=== PATIENT | female | born 1930 | race Caucasian/White ===

== ENCOUNTER 2016-07-30 15:32 | Inpatient (IN) | payer MEDICARE, OTHER ==
--- NOTE | ~2016-07-30 | DS ---
Discharge Summary [facility] [address] [place]. [address] NAME: NELL HUMMEL : 29 STATUS : DIS IN PAT#: [id number] AGE: 86 ADM/REG DATE : 07/30/16 MR#: [id number] REPORT SERV DATE: 08/03/16 DICTATED BY: JOSH HALL DATE: 08/02/16 REPORT STATUS : Draft TRANSCRIBED BY: MODL DATE: 08/02/16 ADMISSION DATE: 07/30/2016 DISCHARGE DATE: 08/02/2016 ADDENDUM: The patient was unable to go home yesterday because no family member was available to pick her up. Given that today is her birthday, the patient on quinteros is insisting on going home today. For her YUSUF, etiology likely secondary to nephrotoxins, also in the setting of diuresis, plan is to hold her Lasix and her potassium supplementation until she is re-evaluated by her primary care physician in five to seven days. The patient currently on potassium supplements. The patient has been instructed to hold her potassium supplementation until re-evaluated by her primary care physician. Given her hemodynamic stability, resolution of presenting symptoms, and given that today is her birthday and she is eagerly and insisting on going home, the patient will be discharged with the above- mentioned instruction. The patient has been counseled, informed of YUSUF and instructed to follow up with her primary care physician in five to seven days. The patient voices understanding and is agreeable with this plan. All other information on discharge summary remains the same. IBETH/RAMON Josh Hall MD / [id number] CC: MD Hilda Harding M.D.
--- NOTE | ~2016-07-30 | DS ---
Discharge Summary [facility] [address] [place]. [address] NAME: NELL ROSSI : 29 STATUS : ADM IN [facility]#: [id number] AGE: 85 ADM/REG DATE : 07/30/16 MR#: [id number] REPORT SERV DATE: 08/01/16 DICTATED BY: JOSH HALL DATE: 08/01/16 REPORT STATUS : Draft TRANSCRIBED BY: MODL DATE: 08/01/16 ADMISSION DATE: 07/30/2016 DISCHARGE DATE: HISTORY OF PRESENT ILLNESS: Ms. Rossi is an 85-year-old female with a history of hypertension, diabetes type 2, CKD stage 3, who presented to the hospital as a direct transfer from [facility] secondary to suspected pneumonia. For further details, please refer to H and P dictated by Dr. Ohara on 07/30/2016. HOSPITAL COURSE: Upon presentation to the emergency room, the patient was noted to be in significant volume overload. A preliminary x-ray obtained noted some infiltrates concerning for pneumonia. The patient was subsequently placed on IV diuretics and also started on IV antibiotics. During her hospital course, the patient responded well to IV diuresis and achieved euvolemia. Her creatinine was noted to trend up, hence IV Lasix was subsequently held. For her pneumonia, upon reevaluation, the patient did not have any clinical symptoms consistent with pneumonia. Therefore, IV antibiotics were discontinued. The patient has remained hemodynamically stable. She has achieved euvolemia and has returned to her baseline. Given her creatinine was noted to bump up today to 1.40, initial plan was to keep the patient for one more day to observe a downward trend in creatinine prior to discharge. However, the patient's birthday is tomorrow and she eagerly wants to go to celebrate her 86th birthday at home. The patient reports that she does have a primary care physician and promises to follow up with her primary care physician for reevaluation in seven to ten days. Therefore, given resolution of presenting symptoms, the patient will be discharged home to follow with her primary care physician. Plan has been discussed with the patient, who voices understanding and is agreeable with this plan. DISCHARGE EXAM: VITAL SIGNS: Blood pressure 139/84 with a pulse of 82, respiration of 14, O2 saturation of 95% on room air. GENERAL: The patient appears stated age, in no acute distress, very pleasant. HEENT: Normocephalic, atraumatic. Extraocular motors intact. Moist oral mucosa. Anicteric sclerae. NECK: Trachea midline and symmetric. No JVD noted. No thyromegaly present. CHEST: Nontender to palpation. No scars are present. CARDIOVASCULAR: Irregular rate and rhythm. S1, S2. I did not appreciate any murmurs. LUNGS: Clear to auscultation bilaterally. No added breath sounds. ABDOMEN: Positive bowel sounds. Nontender. Nondistended. EXTREMITIES: No clubbing, no cyanosis, no edema. NEURO: Alert and oriented x3. DISCHARGE DIAGNOSES: 1. Heart failure with preserved EF. 2. Hypertension. 3. Diabetes type 2. 4. Chronic kidney disease stage 3. 5. Acute kidney injury. Discharge Summary [address] [address] NAME: NELL ROSSI : 29 STATUS : ADM IN [facility]#: [id number] AGE: 85 ADM/REG DATE : 07/30/16 MR#: [id number] REPORT SERV DATE: 08/01/16 DICTATED BY: JOSH HALL DATE: 08/01/16 REPORT STATUS : Draft TRANSCRIBED BY: RAMON DATE: 08/01/16 DISCHARGE MEDICATIONS: 1. Apixaban 5 mg p.o. twice a day. 2. Aspirin 81 mg p.o. daily. 3. Carvedilol 12.5 mg p.o. daily. 4. Furosemide 40 mg p.o. b.i.d. 5. Losartan 50 mg p.o. daily. 6. Tamoxifen 20 mg p.o. daily. PROCEDURES: The patient had a TTE performed with an ejection fraction of 55%. DISPOSITION: The patient will be discharged home to follow up with her primary care physician. DIET: Diabetic diet. ACTIVITY: As tolerated. Greater than 30 minutes was spent coordinating care, planning discharge, dictation of note, medication reconciliation, discussion of care with nurses, and writing prescriptions. IBETH/RAMON Jsoh Hall MD / [id number] CC: MD Hilda Harding M.D.
--- NOTE | ~2016-07-30 | HP ---
History And Physical [place] [place]. [address] NAME: NELL HUMMEL : 29 STATUS : ADM IN [facility]#: [id number] AGE: 85 ADM/REG DATE : 07/30/16 MR#: [id number] REPORT SERV DATE: 07/30/16 DICTATED BY: JACK FINN DATE: 07/30/16 REPORT STATUS : Draft TRANSCRIBED BY: MODL DATE: 07/30/16 DATE OF ADMISSION: 07/30/2016 REASON FOR ADMISSION: Transfer from [facility] with suspected pneumonia. HISTORY: This is an 85-year-old white female, who was followed by Dr. Trevor Rajan in the past. There was some question with regard to weakness of her heart though she has not had an echocardiogram in the last two years. She has had pleural effusion in the past and had this tapped. She did have a pneumothorax and was hospitalized at [facility] because the pneumothorax from the thoracentesis in the past. She has had no fever, chills, or night sweats. She has had a cough that was productive of blood at 1 time. She is on Eliquis because of bivalvular replacement in the past by Dr. Jaret Gale. She was seen by Dr. Lao in the emergency room at [facility] and requested transfer here for provisional diagnosis of pneumonia; however, she had no fever there, was coughing nonproductively and had a normal white blood cell count. HOME MEDICATIONS: Include the following: Ondansetron 4 q.4 hours p.r.n. nausea and vomiting; pantoprazole 40 mg p.o. b.i.d.; glimepiride 4 mg p.o. daily; Sitagliptin 100 mg p.o. daily; carvedilol 12.5 mg p.o. b.i.d.; tamoxifen 20 mg p.o. daily for 30 days; lisinopril 20 mg p.o. daily; furosemide 20 mg p.o. daily; potassium chloride 30 mg p.o. daily; and Eliquis 5 mg p.o. b.i.d. She has had a complaint of generalized weakness but she gets around with a walker. She has been at the assisted living facility for 17 years. She has had no falling recently. She does have some leg edema and wears compressive stockings to help with that. PAST MEDICAL HISTORY: She has back pain and neck pain and some arthritis. ALLERGIES: INCLUDE THE FOLLOWING: BARIUM SULFATE CAUSES HYPOTENSION AND BRONCHOSPASM; AMITIZA CAUSED HIVES; PIOGLITAZONE CAUSED GENERALIZED SWELLING; SULFA DRUGS CAUSED HIVES; AND SIMVASTATIN CAUSED LEG CRAMPS. SHE ALSO TAKES NORCO 5/325 Q.4 HOURS P.R.N. SEVERE PAIN. PAST MEDICAL HISTORY: She has had problems with breast cancer. She had a mastectomy in 2005. Since that time, she has been on tamoxifen. This is apparently in a postmenopausal state. 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 She has a permanent pacemaker placed by Dr. Rajan. Left mastectomy. She has a history of skin cancer removed and grafted by Dr. Wood on her forehead, this was done in [place]. She does have diabetes type 2. SOCIAL HISTORY: She grew up in [place]. She is and moved into [place] with her . She has attended [facility] [place]. She has been History And Physical [address] [address] NAME: NELL HUMMEL : 29 STATUS : ADM IN [facility]#: [id number] AGE: 85 ADM/REG DATE : 07/30/16 MR#: [id number] REPORT SERV DATE: 07/30/16 DICTATED BY: JACK FINN DATE: 07/30/16 REPORT STATUS : Draft TRANSCRIBED BY: RAMON DATE: 07/30/16 since 1995. 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 She never smoked but her did smoke. She had significant secondhand smoke. She took no alcohol. She grew up on the [place] farm in [place]. FAMILY HISTORY: She had 3 brothers, the oldest of exposure to Agent [place] from his [place] experience. She knows no diseases run in the family other than hypertension. She has a sister who is still living. Her mother and father were from hypertensive complications in the past. REVIEW OF SYSTEMS: She has some hardness of hearing. Swelling in the lower extremities which is chronic. She has dyspnea with exertion. She does not wear oxygen. She has had no fever, chills, or night sweats. No melena or hematemesis even on the Eliquis. No fits, seizures, convulsions, or unilateral weakness. No chest pain. She had no pleuritic chest pain. She did have shortness of breath and dyspnea with exertion that provoked her visit to [facility] earlier in the day. She has had a cough nonproductive except the hemoptysis. She does have . She does relate to a history of pneumothorax after a pleural effusion was removed by thoracentesis in the past. She does have atrial fibrillation as well at baseline. PHYSICAL EXAMINATION: GENERAL: Elderly white female, no acute distress. VITAL SIGNS: Her blood pressure was 163/76 with a heart rate of 75, respiratory rate 20, temperature was 98.3, pulse oximetry was 92%, repeat 98%. LAB DATA AND IMAGING DATA: Her EKG shows a ventricular paced rhythm with 1 [place] beat noted on the tracing from [facility]. Her hemoglobin is 12.1, hematocrit 38.4, white count 7.9, and platelets 269,000. Sodium 140, potassium 3.5, chloride 103, and CO2 is 32.2. Creatinine 0.9, BUN 18, and glucose was 147. Her lactate was 1.4. Troponin less than 0.02. Influenza negative x2. Urinalysis showed 10 to 15 white cells per high-powered field, 3+ bacteria, specific gravity 1.015. Her calcium was 8.9. Her BNP was elevated at 2182. Albumin was 3.1. INR was 1.2. White count 7.9, hemoglobin 12.7, hematocrit 38.4, and platelets 269. Chest x-ray showed worsening pulmonary venous hypertension and right upper lobe airspace opacity, possibly representing atelectasis with large pleural effusion. CT scan confirmed large pleural effusion on the right side. ASSESSMENT: 1. Right pleural effusion. As with the elevated BNP, normal white blood cell count, nonproductive purulent cough, I suspect congestive heart failure with recurrence of the right pleural effusion as the main problem. I will increase her Lasix and add metolazone and see if this improves rather than starting antibiotics at this point. The patient got Levaquin at the [facility]. History And Physical [place] [address] [place]. [address] NAME: NELL HUMMEL : 29 STATUS : ADM IN PAT#: [id number] AGE: 85 ADM/REG DATE : 07/30/16 MR#: [id number] REPORT SERV DATE: 07/30/16 DICTATED BY: JACK FINN DATE: 07/30/16 REPORT STATUS : Draft TRANSCRIBED BY: MODL DATE: 07/30/16 2. Possible right upper lobe pneumonia. I believe this is more atelectasis due to compression of loss of volume from the large pleural effusion. 3. History of pneumothorax from previous thoracentesis attempt, therefore I am going to try diuresis to mobilize the pleural effusion first. 4. Aortic valve replacement and mitral valve replacement at [facility] by Dr. Jaret Gale. 5. Permanent pacemaker. 6. History of left mastectomy. We may need to do the thoracentesis to see if this is an exudative neoplastic pleural effusion if it does not mobilize over the next two days. 7. Dyspnea with exertion. 8. Hemoptysis 1 time. She is on Eliquis and had a cough earlier. 9. Coagulopathy. 10.Degenerative joint disease of the knees and hips. 11.History of skin cancer removed by Dr. Wood in the forehead. 12.History of breast cancer on tamoxifen for the last 10 years. 13.Diabetes type 2 on oral medications. 14.Hypertension. 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 Donavan Michele from [facility]. PLAN: Treat as congestive heart failure with pleural effusion with acute exacerbation. Check echocardiogram. Tap if it does not mobilize fairly quickly. We will get a chest x- ray in the next two or three days. DB/MODL Jack Finn M.D. / [id number] CC: Lucian Michel M.D.
[2016-07-30] MEDS ORDERED: OTC PAIN PATCH TOP (17:10)
[2016-07-30] MEDS ORDERED: VITAMIN E PO (17:11)
[2016-07-30] MEDS ORDERED: ASAB PO (17:11)
[2016-07-30] MEDS ORDERED: VITAMIN D PO (17:11)
[2016-07-30] MEDS ORDERED: VITAMIN C PO (17:11)
[2016-07-30] MEDS ORDERED: [UNRECOGNIZED DRUG - OTHER] PO (17:12)
[2016-07-30] MEDS ORDERED: ELIQUIS 5 MG TAB5 MG PO (17:12)
[2016-07-30] MEDS ORDERED: TAMOXIFEN20 M1 PO (17:19)
[2016-07-30] MEDS ORDERED: NORCO1 TAB PO (17:19)
[2016-07-30] MEDS ORDERED: L80 PO (17:19)
[2016-07-30] MEDS ORDERED: COZ50 PO (17:19)
[2016-07-30] MEDS ORDERED: COREG12 PO (17:20)
[2016-07-30] MEDS ORDERED: JANUVIA100 MG PO (17:20)
[2016-07-30 18:45] LABS: FREE T4 1.65 NG/DL (0.76-1.46); ULTRASENSITIVE TSH 0.299 MCIU/ML (0.358-3.740)
[2016-07-30 19:27] LABS: PROCALCITONIN 0.15 ng/mL (<0.5)
[2016-07-31 02:25] LABS: ASCORBIC ACID (UR NOT ORDER) NEG (NEG); BILIRUBIN, URINE NEGATIVE (NEG); KETONE, URINE NEGATIVE (NEG); LEUKOCYTE ESTERASE(NOT OR NEG (NEG); WBC (NOT ORDERED) (RFLEX) < 1 (0-5)
[2016-07-31 06:09] LABS: BASOPHILS 0.4 %; BASOPHILS ABSOLUTE 0.03 10/3/uL (0.0-0.16); EOSINOPHILS ABSOLUTE 0.08 10/3/uL (0.0-0.53); HEMATOCRIT 40.5 % (36.0-48.0); HEMOGLOBIN 12.8 g/dL (12.0-16.0); IMMATURE GRANULOCYTES 0.2 %; IMMATURE GRANULOCYTES ABSOLUTE 0.02 10/3/uL (0.0-0.11); LYMPHOCYTES 18.6 %; LYMPHOCYTES ABSOLUTE 1.49 10/3/uL (0.67-4.30); MEAN CORPUS HGB CONC 31.6 g/dL (32.0-36.0); MEAN CORPUSCULAR HEMOGLOB 27.4 pg (26.0-34.0); MEAN CORPUSCULAR VOLUME 86.7 fL (80-100); MEAN PLATELET VOLUME 9.6 fL (9.2-13.0); MONOCYTES 7.6 %; MONOCYTES ABSOLUTE 0.61 10/3/uL (0.21-1.20); NEUTROPHILS 72.2 %; PLATELET COUNT 299 10/3/uL (150-400); RBC DISTRIBUTION WIDTH 15.2 % (12.0-16.0); RED CELL COUNT 4.67 10/6/uL (4.0-5.6)
[2016-07-31 06:19] LABS: MANUAL DIFF NO %
[2016-07-31 07:43] LABS: BUN (BLOOD UREA NITROGEN) 15 MG/DL (6-23); CALCIUM, SERUM 8.8 MG/DL (8.5-10.4); CHLORIDE, SERUM 98 MMOL/L (96-112); CO2 (CARBON DIOXIDE) 32 MMOL/L (24-34); CREATININE 0.91 MG/DL (0.55-1.02); GFR AFRICAN AMERICAN 66 ML/MIN (>=60); GFR NON AFRICAN AMERICAN 57 ML/MIN (>=60); GLUCOSE, SERUM 115 MG/DL (60-99); POTASSIUM, SERUM 3.9 MMOL/L (3.5-5.3); SODIUM, SERUM 142 MMOL/L (135-148)
[2016-08-01 08:18] LABS: BASOPHILS 0.1 %; BASOPHILS ABSOLUTE 0.01 10/3/uL (0.0-0.16); EOSINOPHILS 0.9 %; EOSINOPHILS ABSOLUTE 0.08 10/3/uL (0.0-0.53); HEMATOCRIT 40.7 % (36.0-48.0); HEMOGLOBIN 13.3 g/dL (12.0-16.0); IMMATURE GRANULOCYTES 0.7 %; IMMATURE GRANULOCYTES ABSOLUTE 0.06 10/3/uL (0.0-0.11); LYMPHOCYTES 19.6 %; MEAN CORPUS HGB CONC 32.7 g/dL (32.0-36.0); MEAN CORPUSCULAR HEMOGLOB 28.1 pg (26.0-34.0); MEAN PLATELET VOLUME 9.8 fL (9.2-13.0); MONOCYTES 9.2 %; MONOCYTES ABSOLUTE 0.84 10/3/uL (0.21-1.20); NEUTROPHILS 69.5 %; NEUTROPHILS ABSOLUTE 6.39 10/3/uL (2.02-8.40); PLATELET COUNT 327 10/3/uL (150-400); RBC DISTRIBUTION WIDTH 15.3 % (12.0-16.0); RED CELL COUNT 4.73 10/6/uL (4.0-5.6); WHITE BLOOD CELLS 9.2 10/3/uL (4.5-10.5)
[2016-08-01 08:19] LABS: MANUAL DIFF NO %
[2016-08-01 08:33] LABS: A/G RATIO 0.9 (0.7-1.9); ALBUMIN 3.2 G/DL (3.5-5.0); ALKALINE PHOSPHATASE 90 U/L (45-117); CALCIUM, SERUM 8.8 MG/DL (8.5-10.4); CHLORIDE, SERUM 99 MMOL/L (96-112); CO2 (CARBON DIOXIDE) 31 MMOL/L (24-34); GFR AFRICAN AMERICAN 39 ML/MIN (>=60); GFR NON AFRICAN AMERICAN 34 ML/MIN (>=60); GLOBULIN 3.4 G/DL (2.5-4.1); GLUCOSE, SERUM 138 MG/DL (60-99); POTASSIUM, SERUM 4.6 MMOL/L (3.5-5.3); SGOT(AST) 24 U/L (5-40); SGPT(ALT) 24 U/L (5-65); SODIUM, SERUM 141 MMOL/L (135-148); TOTAL BILIRUBIN 0.7 MG/DL (0-1.2); TOTAL PROTEIN 6.6 G/DL (6.0-8.5)
[2016-08-01 08:34] LABS: BUN (BLOOD UREA NITROGEN) 24 MG/DL (6-23)
[2016-08-02 04:48] LABS: BASOPHILS 0.2 %; BASOPHILS ABSOLUTE 0.02 10/3/uL (0.0-0.16); EOSINOPHILS 1.8 %; EOSINOPHILS ABSOLUTE 0.15 10/3/uL (0.0-0.53); HEMOGLOBIN 13.5 g/dL (12.0-16.0); IMMATURE GRANULOCYTES 0.5 %; IMMATURE GRANULOCYTES ABSOLUTE 0.04 10/3/uL (0.0-0.11); LYMPHOCYTES 25.1 %; LYMPHOCYTES ABSOLUTE 2.13 10/3/uL (0.67-4.30); MEAN CORPUS HGB CONC 32.1 g/dL (32.0-36.0); MEAN CORPUSCULAR HEMOGLOB 27.9 pg (26.0-34.0); MEAN CORPUSCULAR VOLUME 86.8 fL (80-100); MEAN PLATELET VOLUME 9.8 fL (9.2-13.0); MONOCYTES 8.9 %; MONOCYTES ABSOLUTE 0.75 10/3/uL (0.21-1.20); NEUTROPHILS 63.5 %; NEUTROPHILS ABSOLUTE 5.38 10/3/uL (2.02-8.40); PLATELET COUNT 331 10/3/uL (150-400); RBC DISTRIBUTION WIDTH 15.4 % (12.0-16.0); RED CELL COUNT 4.84 10/6/uL (4.0-5.6); WHITE BLOOD CELLS 8.5 10/3/uL (4.5-10.5)
[2016-08-02 04:52] LABS: MANUAL DIFF NO %
[2016-08-02 05:03] LABS: A/G RATIO 1.3 (0.7-1.9); ALBUMIN 3.3 G/DL (3.5-5.0); ALKALINE PHOSPHATASE 87 U/L (45-117); BUN (BLOOD UREA NITROGEN) 29 MG/DL (6-23); CALCIUM, SERUM 8.6 MG/DL (8.5-10.4); CHLORIDE, SERUM 99 MMOL/L (96-112); CO2 (CARBON DIOXIDE) 31 MMOL/L (24-34); CREATININE 1.85 MG/DL (0.55-1.02); GFR AFRICAN AMERICAN 28 ML/MIN (>=60); GFR NON AFRICAN AMERICAN 24 ML/MIN (>=60); GLOBULIN 2.6 G/DL (2.5-4.1); GLUCOSE, SERUM 137 MG/DL (60-99); POTASSIUM, SERUM 5.6 MMOL/L (3.5-5.3); SGOT(AST) 24 U/L (5-40); SGPT(ALT) 24 U/L (5-65); SODIUM, SERUM 142 MMOL/L (135-148); TOTAL BILIRUBIN 0.7 MG/DL (0-1.2); TOTAL PROTEIN 5.9 G/DL (6.0-8.5)
[2016-08-02] MEDS ORDERED: PROTONIX PO (10:12)
[2016-08-02] MEDS ORDERED: L40 PO (10:14)
== END 2016-08-02 13:39 | disposition home or self-care (01) | DRG 291 ==
LOC: 2SO 15:32
PROVIDERS: Hospitalist; Internal Medicine
DX: I13.0 Hypertensive heart and chronic kidney disease with heart failure and stage 1 through stage 4 chronic kidney disease, or unspecified chronic kidney disease (principal); I50.23 Acute on chronic systolic (congestive) heart failure; N17.9 Acute kidney failure, unspecified; R04.2 Hemoptysis; E87.5 Hyperkalemia; N18.3 Chronic kidney disease, stage 3 (moderate); E11.9 Type 2 diabetes mellitus without complications; M19.90 Unspecified osteoarthritis, unspecified site; M17.0 Bilateral primary osteoarthritis of knee; M16.0 Bilateral primary osteoarthritis of hip; E04.9 Nontoxic goiter, unspecified; Z88.2 Allergy status to sulfonamides; Z88.8 Allergy status to other drugs, medicaments and biological substances; Z80.3 Family history of malignant neoplasm of breast; Z82.49 Family history of ischemic heart disease and other diseases of the circulatory system; Z95.2 Presence of prosthetic heart valve; Z95.0 Presence of cardiac pacemaker; Z90.12 Acquired absence of left breast and nipple
CPT/HCPCS: 71020; 80048; 80053; 81001; 82962; 84145; 84439; 84443; 84481; 85025; A9270-GY; C8929; J1940; Q9957

== ENCOUNTER 2016-08-04 16:54 | Inpatient (IN) | payer MEDICARE, OTHER ==
--- NOTE | ~2016-08-04 | CN ---
Consultation Report [facility] [address] [place]. [address] NAME: NELL ROSSI : 29 STATUS : ADM [place] PAT#: [id number] AGE: 86 ADM/REG DATE : 08/04/16 MR#: [id number] REPORT SERV DATE: 08/05/16 DICTATED BY: EMILY CHOWDARY DATE: 08/05/16 REPORT STATUS : Draft TRANSCRIBED BY: RAMON DATE: 08/05/16 GI CONSULTATION DATE OF CONSULTATION: 08/05/2016 REASON FOR CONSULTATION: Evaluation and management of melena, questionable GI bleed, Hemoccult-positive stools. HISTORY OF PRESENT ILLNESS: Ms. Rossi is an 86-year-old female patient who presented on 08/04 with a chief complaint of black, tarry stools. She states that she had a bowel movement yesterday that was coal black. She has a recent history of hospitalization at . She was admitted on 07/30 as a transfer from [facility] for suspected pneumonia. She was found to have fluid volume overload. Subsequently, she was discharged on the after treatment of that. She responded well to Lasix. She was found not to really have pneumonia. IV antibiotics were discontinued. It was all felt to be secondary to fluid volume overload. She discharged home in good condition with a discharge hemoglobin of 13.5. She presented on the with a hemoglobin of 13.2 and presently, her hemoglobin is 12.8. She has a history of chronic kidney disease, stage III, with a BUN on discharge of 29 with a creatinine on discharge of 1.85, presently it is 1.14. She states that she has had trouble with GI bleeding in the past when she was on Coumadin greater than 10 years ago and when she saw the black stool she "knew what it was." She contacted her primary care physician who directed her to come to for further evaluation. She has not had any more bowel movements. She denies any abdominal pain. No nausea or vomiting. No hematochezia. No hematemesis. No epigastric abdominal pain. She denies any history of ulcer disease and is unsure of what her GI bleed was from many years ago. I have discussed with her, she is on Eliquis. Her last dose was yesterday morning. We would need 48 hours for it to clear her system. We will let her have a full liquid diet today, n.p.o. after midnight and plan for EGD in the morning with Dr. Wong. PAST MEDICAL HISTORY: Positive for bivalvular replacement, AFib on Eliquis, pneumonia, fluid volume overload, breast cancer, chronic kidney disease stage 3, type 2 diabetes, hypertension. SOCIAL HISTORY: She lives independently. Denies alcohol, tobacco, or illicit's. FAMILY HISTORY: Noncontributory from a GI standpoint. ALLERGIES: LISTED TO SULFA, STATIN, LISINOPRIL, AND AN UNKNOWN DIABETIC MEDICATION. HOME MEDICATIONS: Eliquis, aspirin, Coreg, Lasix, [place], Cozaar, Protonix, Januvia, Nolvadex, nyig-udd-reilqul pain patch, vitamin C, vitamin D, vitamin E, [id number]-gps-[id number] nausea medication. REVIEW OF SYSTEMS: Consultation Report [address] [place]. [address] NAME: NELL ROSSI : 29 STATUS : ADM [place] PAT#: [id number] AGE: 86 ADM/REG DATE : 08/04/16 MR#: [id number] REPORT SERV DATE: 08/05/16 DICTATED BY: EMILY CHOWDARY DATE: 08/05/16 REPORT STATUS : Draft TRANSCRIBED BY: RAMON DATE: 08/05/16 A 10-point review of systems has been obtained with pertinent positives being addressed in the history of present illness. PHYSICAL EXAMINATION: VITAL SIGNS: Temperature is 98.0, pulse 69, respirations 20, blood pressure is 128/74. NEURO: She is an alert, female, resting in bed with no focal deficits. GENERAL: Cooperative, no apparent distress. Awake, alert, and oriented x3. HEAD, EARS, EYES, NOSE, AND THROAT: Anicteric. Pupils equal, round, reactive to light and accommodation. Normocephalic and atraumatic. NECK: No JVD. No palpable nodes. LUNGS: Diminished throughout. Normal respiratory effort exhibited. Very coarse in the bilateral lower lobes. CARDIOVASCULAR SYSTEM: Atrial fibrillation with controlled rate. ABDOMEN: Soft, nondistended, nontender with active bowel sounds. No organomegaly appreciated. EXTREMITIES: Mild lower extremity edema. SKIN: Warm, dry, and intact. PERTINENT LABORATORY DATA: Sodium 141, potassium 4.4, BUN is 28, creatinine 1.14. White count 6.1, hemoglobin 12.8, hematocrit 39.4, platelet count 214. INR of 1.5. CT of the abdomen and pelvis with contrast, mild cardiomegaly with pacemaker, moderate size to large right pleural effusion. Cholecystectomy, hysterectomy. No GI or obstruction. ASSESSMENT: 1. Melena with noted Hemoccult-positive stool in the ER. 2. Atrial fibrillation, on Eliquis. Last dose on the . 3. Recent hospitalization secondary to pneumonia/fluid volume overload, resolved with Lasix. 4. History of breast cancer. 5. Chronic kidney disease, stage III. PLAN: 1. Continue proton pump drip. 2. EGD on the to allow Eliquis to wash out of her system as patient's hemoglobin is stable at this point. 3. We will trend her H and H and transfuse if needed. 4. Other recommendations to follow endoscopy. MIKE/RAMON [place] [facility] Consultation Report [address] [address] NAME: NELL ROSSI : 29 STATUS : ADM [place] PAT#: [id number] AGE: 86 ADM/REG DATE : 08/04/16 MR#: [id number] REPORT SERV DATE: 08/05/16 DICTATED BY: EMILY CHOWDARY DATE: 08/05/16 REPORT STATUS : Draft TRANSCRIBED BY: RAMON DATE: 08/05/16 / [id number] CC: MD Hilda Meneses M.D.
--- NOTE | ~2016-08-04 | EGD ---
EGD REPORT [facility] [address] [address] NAME: NELL ROSSI : 29 STATUS : ADM IN PAT#: [id number] AGE: 86 ADM/REG DATE : 08/04/16 MR#: [id number] REPORT SERV DATE: 08/06/16 DICTATED BY: SADIA BUI DATE: 08/06/16 REPORT STATUS : Draft TRANSCRIBED BY: [facility] DATE: 08/06/16 Endoscopy Center Patient Name: Nell Rossi Date of : 1930 Attending MD: SADIA BUI, Procedure Date No Time: 08/06/2016 Procedure: Upper GI endoscopy Indications: Melena Referring MD: TATIANNA SAEZ Medicines: Monitored Anesthesia Care Complications: No immediate complications. Estimated blood loss: None. Procedure: Pre-Anesthesia Assessment: - ASA Grade Assessment: III - A patient with severe systemic disease. After obtaining informed consent, the endoscope was passed under direct vision. Throughout the procedure, the patient's blood pressure, pulse, and oxygen saturations were monitored continuously. The GIF [id number] was introduced through the mouth, and advanced to the second part of duodenum. The upper GI endoscopy was accomplished without difficulty. The patient tolerated the procedure well. Findings: The esophagus was normal. Multiple dispersed, medium-sized non-bleeding erosions were found in the gastric antrum. There were no stigmata of recent bleeding. Biopsies were taken with a cold forceps for histology. Verification of patient identification for the specimen was done. Estimated blood loss was minimal. A small hiatus hernia was present. The cardia and gastric fundus were normal on retroflexion. The exam of the stomach was otherwise normal. A few localized erosions without bleeding were found in the duodenal bulb. The exam of the duodenum was otherwise normal. Impression: - Normal esophagus. - Non-bleeding erosive gastropathy. Biopsied. - Hiatus hernia. - Duodenal erosions without bleeding. Recommendation: - Patient has a contact number available for emergencies. The signs and symptoms of potential delayed complications were discussed with the patient. Return to EGD REPORT [address] [address] NAME: NELL ROSSI : 29 STATUS : ADM IN [facility]#: [id number] AGE: 86 ADM/REG DATE : 08/04/16 MR#: [id number] REPORT SERV DATE: 08/06/16 DICTATED BY: SADIA BUI DATE: 08/06/16 REPORT STATUS : Draft TRANSCRIBED BY: [facility] DATE: 08/06/16 normal activities tomorrow. Written discharge instructions were provided to the patient. - Return to previous diet. - Continue present medications. - Use Protonix (pantoprazole) 40 mg PO daily. - Await pathology results. - Ok to restart anticoagulation. Procedure Code(s): --- Professional --- 71175, Esophagogastroduodenoscopy, flexible, transoral; with biopsy, single or multiple Diagnosis Code(s): --- Professional --- K31.9, Disease of stomach and duodenum, unspecified K44.9, Diaphragmatic hernia without obstruction or gangrene K26.9, Duodenal ulcer, unspecified as acute or chronic, without hemorrhage or perforation K92.1, Melena CPT copyright 2013 [employer]. All rights reserved. The codes documented in this report are preliminary and upon roustabout review may be revised to meet current compliance requirements. SADIA BUI, 08/06/2016 2:27 PM Number of Addenda: 0 Note Initiated On: 08/06/2016 2:12 PM Scope Withdrawal Time 0 hours 0 minutes 0 seconds
--- NOTE | ~2016-08-04 | HP ---
History And Physical [facility] [address] [place]. [address] NAME: NELL ROSSI : 28 STATUS : ADM [place] PAT#: [id number] AGE: 86 ADM/REG DATE : 08/04/16 MR#: [id number] REPORT SERV DATE: 08/05/16 DICTATED BY: JATIN TELLO DATE: 08/05/16 REPORT STATUS : Draft TRANSCRIBED BY: MODL DATE: 08/05/16 DATE OF ADMISSION: 08/04/2016 CHIEF COMPLAINT: Black tarry stools per rectum. HISTORY OF PRESENT ILLNESS: This is an 86-year-old female, who has a history of atrial fibrillation and is on Eliquis, has diabetes mellitus, chronic kidney disease who presents to the emergency room at [facility] with the above-mentioned complaint. History is obtained from the patient, and reviewing data available on the [facility] system. According to the patient, she was recently discharged from this facility after she was treated as an inpatient from 08/01/2016 to 08/03/2016 for volume overload and chronic kidney disease. After she went home, she was doing well until this morning when she had a bowel movement, and it was black tarry in color. She knew immediately what it was and being on Eliquis, she called her primary care physician, Dr. Qi De La Rosa who advised her to go to the emergency room right away. In the emergency room, she indeed had black tarry stools, and Hospitalist Service is asked to admit her for further evaluation and treatment. At the time of my evaluation, she denied any chest pain, palpitations, or orthopnea. She had no cough, hemoptysis, night sweats, or weight loss. She denied any recent falls or loss of consciousness. No history of recent fevers, chills, abdominal pain, nausea, vomiting, or diarrhea. She denied any hematemesis or hematuria. No other history of recent travel or exposures other than those mentioned above. PAST MEDICAL HISTORY: Significant for history of atrial fibrillation, for which she is on Eliquis. She has coronary artery disease with CABG done, pacemaker in place. She has chronic kidney disease and has diabetes mellitus as well. She has essential hypertension. SOCIAL HISTORY: She does not smoke, drink, or use recreational drugs. FAMILY HISTORY: Noncontributory. MEDICATIONS: At home were reviewed by me in the chart today and reordered by me. REVIEW OF SYSTEMS: As in history of present illness. All other systems were reviewed in detail and are quite unremarkable. PHYSICAL EXAMINATION: GENERAL: This is a pleasant 86-year old, not in any acute distress. She is alert, awake, oriented to time, place, and person. HEENT: Her head is atraumatic, normocephalic. Pupils are equal, reacting to light and accommodating. External ocular muscles are intact. Membranes are moist and pink. Sclerae are nonicteric. NECK: Supple with no jugular venous distention, lymphadenopathy, or thyromegaly. History And Physical [address] [address] NAME: NELL ROSSI : 28 STATUS : ADM [place] PAT#: [id number] AGE: 86 ADM/REG DATE : 08/04/16 MR#: [id number] REPORT SERV DATE: 08/05/16 DICTATED BY: JATIN TELLO DATE: 08/05/16 REPORT STATUS : Draft TRANSCRIBED BY: RAMON DATE: 08/05/16 LUNGS: Clear to auscultation with no wheezes, rubs, or crackles. HEART: Heart sounds were regular with no murmurs, rubs, or gallops. ABDOMEN: Soft, nontender. Bowel sounds are present. EXTREMITIES: Showed trace pitting edema in the lower extremities, otherwise without any cyanosis or clubbing. NEUROLOGIC: Grossly intact. No focal sensory or motor deficits. Higher functions appeared intact. Gait was not examined. VITAL SIGNS: Her vital signs today showed a temperature of a 98 degrees Fahrenheit, pulse was 79, respirations were 21 a minute, and blood pressure was 123/74 upon arrival. Oxygen saturations were 95%, breathing 2 L of oxygen via nasal cannula. LABORATORY DATA: Reviewed on the [facility] system showed CMP showing sodium of 141, potassium 4.7, chloride 104, and CO2 of 29. BUN was 39 with a creatinine of 1.33 and blood glucose was 71. CBC showed a white blood cell count of 8100, hemoglobin was 13.2, hematocrit 40.9, platelet count was 269,000. Her prothrombin time was 17.7 with an INR of 1.5. Urinalysis was not done today. No imaging or EKG was done in the emergency room today. IMPRESSION: 1. Acute gastrointestinal bleed. 2. Melena. 3. Coagulopathy. 4. Atrial fibrillation on Eliquis. 5. Hypertension. 6. Chronic kidney disease stage 3. 7. Diabetes mellitus type 2. PLAN: We will admit Mrs. Rossi to the Hospitalist Service with telemetry for a 24-hour observation period. We will follow serial hemoglobin, hematocrit levels, type, cross, and transfuse as needed. We will go ahead and consult Gastroenterology Service to see her in the morning and keep her n.p.o. We will certainly be holding her Eliquis, and we will monitor hemoglobin hematocrit levels closely. They are now 13.2 and 40.5 respectively. We will get an EKG for now and place her on blood sugar control with NovoLog given subcutaneously per sliding scale. We will also check her A1c. She will be on volume replacement which we will do very cautiously given her chronic kidney disease. Her constipation apparently has currently been resolved. She will be on SCDs for DVT prophylaxis while she is here. We will also start her on proton pump inhibitor infusion while she is here. I have discussed the above plans with the patient. Her questions were answered, and she is agreeable to the above recommendations. Further recommendations will follow after GI has had a chance to see her. /RMAON Jatin Tello M.D. History And Physical [address] [address] NAME: NELL ROSSI : 28 STATUS : ADM [place] PAT#: [id number] AGE: 86 ADM/REG DATE : 08/04/16 MR#: [id number] REPORT SERV DATE: 08/05/16 DICTATED BY: JATIN TELLO DATE: 08/05/16 REPORT STATUS : Draft TRANSCRIBED BY: RAMON DATE: 08/05/16 / [id number] CC: MD Hilda Meneses M.D.
--- NOTE | ~2016-08-04 | DS ---
Discharge Summary [facility] [address] [facility] [facility] [place]. [address] NAME: NELL HUMMEL : 28 STATUS : DIS IN PAT#: [id number] AGE: 86 ADM/REG DATE : 08/04/16 MR#: [id number] REPORT SERV DATE: 08/07/16 DICTATED BY: NILAM SOTO DATE: 08/07/16 REPORT STATUS : Draft TRANSCRIBED BY: MODL DATE: 08/07/16 ADMISSION DATE: 08/04/2016 DISCHARGE DATE: 08/07/2016 REASON FOR ADMISSION: Melena. HISTORY OF PRESENT ILLNESS: Please refer to Dr. Jatin Yusuf's history and physical dated 08/05/2016 for complete details regarding the patient's admission. In brief, the patient was admitted under the hospitalist Service for management and evaluation of her melena. HOSPITAL COURSE: The patient had an uncomplicated hospital course. The patient has a known history of AFib, on Eliquis along with aspirin. She has CKD, stage III. She presented with melena and she was concerned that she was having a GI bleed history, so she reported to the ER for further evaluation. Dr. Wong with [facility] was consulted. He performed an EGD, which showed normal esophagus, a nonbleeding erosive gastropathy, hiatal hernia, duodenal erosions without any bleeding and also recommended restarting her anticoagulation. Of note, her aspirin and her Eliquis was held in order to do the procedure. She had serial hemoglobins, which did not drop. She had a normal bowel movement prior to discharge. She will be discharged home in a stable condition. DISCHARGE DIAGNOSES: Melena, now resolved; duodenal erosions without any bleeding; nonbleeding erosive gastropathy; chronic kidney disease, stage III; chronic right pleural effusion; atrial fibrillation, on Eliquis; type 2 diabetes; hypertension; history of breast cancer, status post surgical resection and on tamoxifen. PROCEDURES: Include consultation with Dr. Wong, EGD, and chest x-ray. DISCHARGE MEDICATIONS: Include Eliquis 5 mg twice a day, Januvia 100 mg daily, Coreg 12.5 mg daily, Lasix 40 mg twice a day, losartan 50 mg daily, Protonix 40 mg twice a day, tamoxifen 20 mg daily, [id number] pain patch, vitamin C, vitamin D, vitamin E, aspirin 81 mg daily, and [place] p.r.n. pain. FOLLOWUP: The patient will follow up with her PCP. DARRON/RAMON Nilam Soto MD / [id number] CC: MD Hilda Meneses M.D.
[~2016-08-04 16:54] MED LIST: ASAB PO; COREG12 PO; COZ50 PO; ELIQUIS 5 MG TAB5 MG PO; JANUVIA100 MG PO; L40 PO; L80 PO; NORCO1 TAB PO; OTC PAIN PATCH TOP; PROTONIX PO; TAMOXIFEN20 M1 PO; VITAMIN C PO; VITAMIN D PO; VITAMIN E PO; [UNRECOGNIZED DRUG - OTHER] PO
[2016-08-04 17:44] LABS: BASOPHILS 0.2 %; BASOPHILS ABSOLUTE 0.02 10/3/uL (0.0-0.16); EOSINOPHILS 1.7 %; EOSINOPHILS ABSOLUTE 0.14 10/3/uL (0.0-0.53); ER CBC TAT 0 Hrs 03 Mins; HEMATOCRIT 40.5 % (36.0-48.0); HEMOGLOBIN 13.2 g/dL (12.0-16.0); IMMATURE GRANULOCYTES 0.2 %; IMMATURE GRANULOCYTES ABSOLUTE 0.02 10/3/uL (0.0-0.11); LYMPHOCYTES 32.8 %; LYMPHOCYTES ABSOLUTE 2.66 10/3/uL (0.67-4.30); MEAN CORPUS HGB CONC 32.6 g/dL (32.0-36.0); MONOCYTES 8.9 %; MONOCYTES ABSOLUTE 0.72 10/3/uL (0.21-1.20); NEUTROPHILS 56.2 %; NEUTROPHILS ABSOLUTE 4.56 10/3/uL (2.02-8.40); PLATELET COUNT 269 10/3/uL (150-400); RBC DISTRIBUTION WIDTH 15.3 % (12.0-16.0); RED CELL COUNT 4.71 10/6/uL (4.0-5.6); WHITE BLOOD CELLS 8.1 10/3/uL (4.5-10.5)
[2016-08-04 17:46] LABS: MANUAL DIFF NO %
[2016-08-04 17:53] LABS: INTERNATIONAL NORMAL RATI 1.5 UNITS (-); PARTIAL THROMBO TIME 36.3 SEC (22.5-37.2); PROTIME (NOT ORD) 17.7 SEC (12.0-14.5)
[2016-08-04 18:00] LABS: A/G RATIO 1.3 (0.7-1.9); ALBUMIN 3.5 G/DL (3.5-5.0); ALKALINE PHOSPHATASE 82 U/L (45-117); BUN (BLOOD UREA NITROGEN) 39 MG/DL (6-23); CALCIUM, SERUM 8.4 MG/DL (8.5-10.4); CHLORIDE, SERUM 104 MMOL/L (96-112); CO2 (CARBON DIOXIDE) 29 MMOL/L (24-34); CREATININE 1.33 MG/DL (0.55-1.02); GFR AFRICAN AMERICAN 42 ML/MIN (>=60); GFR NON AFRICAN AMERICAN 36 ML/MIN (>=60); GLOBULIN 2.8 G/DL (2.5-4.1); GLUCOSE, SERUM 71 MG/DL (60-99); POTASSIUM, SERUM 4.7 MMOL/L (3.5-5.3); SGOT(AST) 18 U/L (5-40); SGPT(ALT) 21 U/L (5-65); SODIUM, SERUM 141 MMOL/L (135-148); TOTAL BILIRUBIN 0.5 MG/DL (0-1.2); TOTAL PROTEIN 6.3 G/DL (6.0-8.5)
[2016-08-04 22:30] LABS: HEMATOCRIT 40.9 % (36.0-48.0); HEMOGLOBIN 13.2 g/dL (12.0-16.0)
[2016-08-05 04:23] LABS: WBC (NOT ORDERED) (RFLEX) 0 (0-5)
[2016-08-05 05:00] LABS: ASCORBIC ACID (UR NOT ORDER) NEG (NEG); BILIRUBIN, URINE NEGATIVE (NEG); KETONE, URINE NEGATIVE (NEG); LEUKOCYTE ESTERASE(NOT OR NEG (NEG)
[2016-08-05 06:44] LABS: BASOPHILS 0.3 %; BASOPHILS ABSOLUTE 0.02 10/3/uL (0.0-0.16); EOSINOPHILS 2.1 %; EOSINOPHILS ABSOLUTE 0.13 10/3/uL (0.0-0.53); HEMATOCRIT 39.4 % (36.0-48.0); HEMOGLOBIN 12.8 g/dL (12.0-16.0); IMMATURE GRANULOCYTES 0.5 %; IMMATURE GRANULOCYTES ABSOLUTE 0.03 10/3/uL (0.0-0.11); LYMPHOCYTES 27.1 %; LYMPHOCYTES ABSOLUTE 1.64 10/3/uL (0.67-4.30); MEAN CORPUS HGB CONC 32.5 g/dL (32.0-36.0); MEAN CORPUSCULAR VOLUME 86.2 fL (80-100); MEAN PLATELET VOLUME 9.2 fL (9.2-13.0); MONOCYTES 8.3 %; NEUTROPHILS 61.7 %; NEUTROPHILS ABSOLUTE 3.74 10/3/uL (2.02-8.40); PLATELET COUNT 214 10/3/uL (150-400); RBC DISTRIBUTION WIDTH 15.3 % (12.0-16.0); RED CELL COUNT 4.57 10/6/uL (4.0-5.6); WHITE BLOOD CELLS 6.1 10/3/uL (4.5-10.5)
[2016-08-05 06:45] LABS: MANUAL DIFF NO %
[2016-08-05 06:55] LABS: BUN (BLOOD UREA NITROGEN) 28 MG/DL (6-23); CALCIUM, SERUM 8.1 MG/DL (8.5-10.4); CHLORIDE, SERUM 107 MMOL/L (96-112); CO2 (CARBON DIOXIDE) 25 MMOL/L (24-34); CREATININE 1.14 MG/DL (0.55-1.02); GFR AFRICAN AMERICAN 50 ML/MIN (>=60); GFR NON AFRICAN AMERICAN 43 ML/MIN (>=60); GLUCOSE, SERUM 131 MG/DL (60-99); PHOSPHORUS, SERUM 2.6 MG/DL (2.5-4.5); POTASSIUM, SERUM 4.4 MMOL/L (3.5-5.3); SODIUM, SERUM 141 MMOL/L (135-148)
[2016-08-05 08:52] LABS: HEMATOCRIT 39.8 % (36.0-48.0); HEMOGLOBIN 12.6 g/dL (12.0-16.0)
[2016-08-05 10:53] LABS: HEMATOCRIT 41.5 % (36.0-48.0); HEMOGLOBIN 13.6 g/dL (12.0-16.0)
[2016-08-05 17:03] LABS: HEMATOCRIT 40.3 % (36.0-48.0); HEMOGLOBIN 13.1 g/dL (12.0-16.0)
[2016-08-05 20:18] LABS: HEMATOCRIT 40.4 % (36.0-48.0); HEMOGLOBIN 13.2 g/dL (12.0-16.0)
[2016-08-06 05:43] LABS: BASOPHILS 0.6 %; BASOPHILS ABSOLUTE 0.03 10/3/uL (0.0-0.16); EOSINOPHILS 2.3 %; EOSINOPHILS ABSOLUTE 0.12 10/3/uL (0.0-0.53); HEMATOCRIT 39.2 % (36.0-48.0); HEMOGLOBIN 12.5 g/dL (12.0-16.0); IMMATURE GRANULOCYTES 0.4 %; IMMATURE GRANULOCYTES ABSOLUTE 0.02 10/3/uL (0.0-0.11); LYMPHOCYTES 32.7 %; LYMPHOCYTES ABSOLUTE 1.74 10/3/uL (0.67-4.30); MEAN CORPUS HGB CONC 31.9 g/dL (32.0-36.0); MEAN CORPUSCULAR HEMOGLOB 27.4 pg (26.0-34.0); MEAN CORPUSCULAR VOLUME 85.8 fL (80-100); MEAN PLATELET VOLUME 9.5 fL (9.2-13.0); MONOCYTES 12.8 %; MONOCYTES ABSOLUTE 0.68 10/3/uL (0.21-1.20); NEUTROPHILS 51.2 %; NEUTROPHILS ABSOLUTE 2.73 10/3/uL (2.02-8.40); PLATELET COUNT 194 10/3/uL (150-400); RBC DISTRIBUTION WIDTH 15.3 % (12.0-16.0); RED CELL COUNT 4.57 10/6/uL (4.0-5.6); WHITE BLOOD CELLS 5.3 10/3/uL (4.5-10.5)
[2016-08-06 05:45] LABS: MANUAL DIFF NO %
[2016-08-06 05:54] LABS: INTERNATIONAL NORMAL RATI 1.2 UNITS (-); PARTIAL THROMBO TIME 33.7 SEC (22.5-37.2); PROTIME (NOT ORD) 15.3 SEC (12.0-14.5)
[2016-08-06 05:58] LABS: CHLORIDE, SERUM 106 MMOL/L (96-112); CO2 (CARBON DIOXIDE) 27 MMOL/L (24-34); CREATININE 1.14 MG/DL (0.55-1.02); GFR AFRICAN AMERICAN 50 ML/MIN (>=60); GFR NON AFRICAN AMERICAN 43 ML/MIN (>=60); GLUCOSE, SERUM 143 MG/DL (60-99); PHOSPHORUS, SERUM 2.4 MG/DL (2.5-4.5); POTASSIUM, SERUM 3.8 MMOL/L (3.5-5.3); SODIUM, SERUM 143 MMOL/L (135-148)
[2016-08-06 06:00] LABS: BUN (BLOOD UREA NITROGEN) 18 MG/DL (6-23)
[2016-08-06 10:39] LABS: HEMATOCRIT 39.7 % (36.0-48.0); HEMOGLOBIN 12.7 g/dL (12.0-16.0)
[2016-08-06 17:27] LABS: HEMATOCRIT 41.8 % (36.0-48.0); HEMOGLOBIN 13.5 g/dL (12.0-16.0)
[2016-08-06 23:01] LABS: HEMATOCRIT 41.3 % (36.0-48.0); HEMOGLOBIN 13.6 g/dL (12.0-16.0)
[2016-08-07 06:13] LABS: BUN (BLOOD UREA NITROGEN) 18 MG/DL (6-23); CALCIUM, SERUM 8.4 MG/DL (8.5-10.4); CHLORIDE, SERUM 105 MMOL/L (96-112); CO2 (CARBON DIOXIDE) 28 MMOL/L (24-34); CREATININE 1.21 MG/DL (0.55-1.02); GFR AFRICAN AMERICAN 47 ML/MIN (>=60); GFR NON AFRICAN AMERICAN 40 ML/MIN (>=60); PHOSPHORUS, SERUM 2.4 MG/DL (2.5-4.5); SODIUM, SERUM 142 MMOL/L (135-148)
[2016-08-07 06:14] LABS: GLUCOSE, SERUM 113 MG/DL (60-99)
== END 2016-08-07 12:18 | disposition home or self-care (01) | DRG 378 ==
LOC: ER 16:54 → 7NO 20:06
PROVIDERS: Emergency Medicine; Internal Medicine; Internal Medicine Gastroenterology; Internal Medicine Pulmonary Disease; Nurse Practitioner Family
PROC: 0DB68ZX Excision of Stomach, Via Natural or Artificial Opening Endoscopic, Diagnostic (ICD-10-PCS; principal; 2016-08-06 14:30)
DX: K92.1 Melena (principal); J90 Pleural effusion, not elsewhere classified; E11.22 Type 2 diabetes mellitus with diabetic chronic kidney disease; I48.91 Unspecified atrial fibrillation; N18.3 Chronic kidney disease, stage 3 (moderate); T45.525A Adverse effect of antithrombotic drugs, initial encounter; I25.10 Atherosclerotic heart disease of native coronary artery without angina pectoris; I12.9 Hypertensive chronic kidney disease with stage 1 through stage 4 chronic kidney disease, or unspecified chronic kidney disease; K44.9 Diaphragmatic hernia without obstruction or gangrene; K31.9 Disease of stomach and duodenum, unspecified; K26.9 Duodenal ulcer, unspecified as acute or chronic, without hemorrhage or perforation; Z79.84 Long term (current) use of oral hypoglycemic drugs; Z79.01 Long term (current) use of anticoagulants; Z79.82 Long term (current) use of aspirin; Z79.899 Other long term (current) drug therapy; Z95.1 Presence of aortocoronary bypass graft; Z95.0 Presence of cardiac pacemaker; Z95.2 Presence of prosthetic heart valve; Z85.3 Personal history of malignant neoplasm of breast; Z88.2 Allergy status to sulfonamides; Z88.8 Allergy status to other drugs, medicaments and biological substances
CPT/HCPCS: 36415; 71020; 71035; 74177; 80048; 80053; 81001; 82962; 83036; 83735; 84100; 85014; 85018; 85025; 85610; 85730; 86850; 86900; 86901; 88305; 96374; 99285; A9270-GY; C9113; Q9967